=== PATIENT | male | born 1950 | race Caucasian/White ===

== ENCOUNTER 2016-09-21 20:03 | Emergency (ER) | payer MEDICARE, OTHER ==
[~2016-09-21] VITALS: Ht 177.8 cm; Wt 97.3 kg
[2016-09-21] MEDS ORDERED: SERTRALINE HYD100 MG PO (20:25)
[2016-09-21] MEDS ORDERED: PROPRANOLOL HCL40 M2 PO (20:26)
[2016-09-21] MEDS ORDERED: WELLBUTRIN 75MG75 MG PO (20:26)
[2016-09-21] MEDS ORDERED: HCTZ 25MG25 MG PO (20:26)
[2016-09-21] MEDS ORDERED: NORCO 325 MG-51 TA1 PO (20:43)
[2016-09-21 21:02] VITALS: BP 164/104
== END 2016-09-21 20:58 | disposition home or self-care (01) ==
LOC: ED 20:03
DX: S63.501A Unspecified sprain of right wrist, initial encounter (principal); X58.XXXA Exposure to other specified factors, initial encounter
CPT/HCPCS: J2270

== ENCOUNTER → 2016-09-21 | Outpatient (CLI) | payer MEDICARE, OTHER ==
[~2016-09-21] MED LIST: HCTZ 25MG25 MG PO; NORCO 325 MG-51 TA1 PO; PROPRANOLOL HCL40 M2 PO; SERTRALINE HYD100 MG PO; WELLBUTRIN 75MG75 MG PO
== END ==
LOC: RAD 13:34
DX: M25.531 Pain in right wrist (principal)

== ENCOUNTER 2017-08-28 23:11 | Emergency (ER) | payer MEDICARE, OTHER ==
[~2017-08-28] VITALS: Ht 190.5 cm; Wt 104.5 kg
[2017-08-28 23:11] VITALS: BP 164/92
== END 2017-08-29 00:23 | disposition home or self-care (01) ==
LOC: ED 23:11
DX: S20.212A Contusion of left front wall of thorax, initial encounter (principal); R06.2 Wheezing; W01.190A Fall on same level from slipping, tripping and stumbling with subsequent striking against furniture, initial encounter; Y92.009 Unspecified place in unspecified non-institutional (private) residence as the place of occurrence of the external cause; I10 Essential (primary) hypertension; F17.200 Nicotine dependence, unspecified, uncomplicated